=== PATIENT | female | born 1970 ===

== ENCOUNTER 2016-10-01 09:20 | Emergency (ER) | payer OTHER ==
[2016-10-01 09:28] VITALS: BP 137/94; PULSE 96; RESP 18; TEMP 98.4; O2SAT 100
--- NOTE | 2016-10-01 09:50 | C.PDOC ---
History Of Present Illness 46 Y/O FEMALE C/O NEW ONSET LEFT UPPER MOLAR SINCE JUST PRIOR TO ARRIVAL. PATIENT REPORTS SHE WAS CHEWING ON BREAD AND FELT SOMETHING DISLODGE FROM THE TOOTH, WITH ACUTE SUDDEN ONSET OF PAIN. TOOK NSAIDS TODAY PRIOR TO ARRIVAL WITH LIMITED IMPROVEMENT. DENIES FEVER, CHILLS, OR OTHER COMPLAINTS. PT STATES SHE IS ACTIVELY LOOKING TO SEE DENTIST TODAY. Chief Complaint (Nursing): Dental Pain History Per: Patient History/Exam Limitations: no limitations Onset/Duration Of Symptoms: Days Current Symptoms Are (Timing): Still Present Quality: Positive for: "Pain" Recent travel outside of the [place]: No Past Medical History Reviewed: Historical Data, Nursing Documentation, Vital Signs Vital Signs: Last Vital Signs Temp 98.4 F 10/01/16 09:27 Pulse 96 H 10/01/16 09:27 Resp 18 10/01/16 09:27 BP 137/94 H 10/01/16 09:27 Pulse Ox 100 10/01/16 10:26 - Medical History PMH: Hypercholesterolemia (Controlled with diet.), Obstructive Bowel (x4) Family History: States: Unknown Family Hx - Social History Hx Alcohol Use: Yes Hx Substance Use: No - Immunization History Hx Tetanus Toxoid Vaccination: Yes Hx Influenza Vaccination: No Hx Pneumococcal Vaccination: Yes Review Of Systems Except As Marked, All Systems Reviewed And Found Negative. Constitutional: Negative for: Fever, Chills ENT: Positive for: Mouth Pain (LEFT UPPER MOLAR PAIN ). Negative for: Mouth Swelling, Throat Pain, Throat Swelling Respiratory: Negative for: Cough Physical Exam - Physical Exam Appears: Non-toxic, No Acute Distress Skin: Normal Color, Warm, Dry Head: Atraumatic, Normacephalic Oral Mucosa: Moist Teeth: Other (FILLING MISSING TO LEFT UPPER MOLAR, BASE OF TOOTH EXPOSED, NO FRACTURE, GUM SWELLING, OR ABSCESS. ) Gingiva: Normal Appearing, No Swelling, No Abscess Throat: Normal, No Erythema, No Exudate Neurological/Psych: Oriented x3, Normal Speech, Normal Cognition ED Course And Treatment O2 Sat by Pulse Oximetry: 100 (RA) Pulse Ox Interpretation: Normal Progress - Re-Evaluation Re-evaluation Note: 10/01/16 09:50 nj rx review 09/03/2016 TRAMADOL HCL 50 MG TABLET 30.0 - Data Reviewed Data Reviewed: Other Disposition Counseled Patient/Family Regarding: Diagnosis, Need For Followup, Rx Given - Disposition Referrals: YOUR,DENTIST [Other] Disposition: HOME/ ROUTINE Disposition Time: 10:25 Condition: IMPROVED Additional Instructions: APPLY VISCOUS LIDOCAINE TO AFFECTED AREA DIRECTED NEEDED FOR PAIN. SEE YOUR DENTIST NELSON. Prescriptions: Penicillin VK [Pen-Vee K] 2 tab PO BID #28 tab oxyCODONE/Acetaminophen [Percocet 5/325 mg Tab] 1 tab PO QID PRN #14 tab PRN Reason: Pain Instructions: Toothache (ED) Forms: Work Excuse - Clinical Impression Clinical Impression: Loss of filling from access hole of tooth, Tooth pain - Scribe Statement The provider has reviewed the documentation as recorded by the [place] FONSECA Provider Attestation: All medical record entries made by the [place] were at my direction and personally dictated by me. I have reviewed the chart and agree that the record accurately reflects my personal performance of the history, physical exam, medical decision making, and the department course for this patient. I have also personally directed, reviewed, and agree with the discharge instructions and disposition.
[2016-10-01] MEDS ORDERED: Oxycodone/Acetaminophen 5/325 mg Tab ONE (10:08)
== END 2016-10-01 10:44 | disposition home or self-care (01) ==
LOC: C.ER 09:20
DX: K08.89 Other specified disorders of teeth and supporting structures (principal)

== ENCOUNTER 2016-10-23 10:28 | Emergency (ER) | payer OTHER ==
[2016-10-23] MEDS ORDERED: Bupivacaine HCl 0.25% PF (10 ml) Inj INFIL STA (11:52)
[2016-10-23] MEDS ORDERED: Morphine 4 MG/ML VIAL ONE ×2 (13:03→17:21)
[2016-10-23 13:10] LABS: BASO # 0.1 K/uL (0.0-0.2); BASO % 0.9 % (0.0-2.0); EOS # 0.2 K/uL (0.0-0.7); EOS % 1.7 % (0.0-4.0); HEMATOCRIT 34.7 % (34.0-47.0); LYMPH # 3.7 K/uL (1.0-4.3); LYMPH % 31.8 % (20.0-40.0); MEAN CELL VOLUME 96.7 fL (81.0-99.0); MEAN CORPUSCULAR HEMOGLOBIN 32.4 pg (27.0-31.0); MEAN CORPUSCULAR HGB CONC 33.5 g/dL (33.0-37.0); MEAN PLATELET VOLUME 7.8 fL (7.2-11.7); MONO # 0.8 K/uL (0.0-0.8); MONO % 6.6 % (0.0-10.0); RED CELL DISTRIBUTION WIDTH 13.5 % (11.5-14.5); WHITE BLOOD COUNT 11.7 K/uL (4.8-10.8)
[2016-10-23] MEDS ORDERED: Sodium Chloride 0.9% 1,000 ML IV ONE (13:16)
[2016-10-23 13:19] LABS: CHLORIDE 104 mmol/L (98-107); POTASSIUM 3.9 mmol/L (3.6-5.2); SODIUM 139 mmol/L (132-148)
[2016-10-23 13:21] LABS: ALB/GLOB RATIO 1.3 (1.0-2.1); AST/SGOT 26 U/L (14-36); BILIRUBIN,TOTAL 0.5 mg/dL (0.2-1.3); CARBON DIOXIDE 28 mmol/L (22-30); GFR AFRICAN-AMERICAN > 60; TOTAL PROTEIN 7.2 g/dL (6.3-8.3)
[2016-10-23 13:22] LABS: ALKALINE PHOSPHATASE 74 U/L (38-126); ALT/SGPT 24 U/L (9-52); BLOOD UREA NITROGEN 12 mg/dL (7-17); CALCIUM 8.8 mg/dl (8.6-10.4); GLUCOSE,RANDOM 84 mg/dL (65-105)
[2016-10-23] MEDS ORDERED: Iohexol 240 (50 ml) ONE (13:45)
--- NOTE | 2016-10-23 13:53 | C.PDOC ---
History Of Present Illness A 46 year old female presents to the emergency room with complaints of progressively worsening rectal pain for 2 days. Patient reports that she had a friend take a look and was told to come to the ER. Patient notes that she has not experienced a pain like this before. Patient has not taken any medications for it. Patient denies any fever, chills, chest pain, shortness of breath, headaches, dizziness, nausea, vomiting, diarrhea, hematochezia, or melena. Time Seen by Provider: 10/23/16 11:39 Chief Complaint (Nursing): Abnormal Skin Integrity History Per: Patient History/Exam Limitations: no limitations Onset/Duration Of Symptoms: Days (2) Current Symptoms Are (Timing): Worse Quality Of Symptoms: Painful, Swollen. denies: Itching, Draining Severity: Moderate Pain Scale Rating Of: 0 Recent travel outside of the [place]: No Past Medical History Reviewed: Historical Data, Nursing Documentation, Vital Signs Vital Signs: Last Vital Signs Temp 97.9 F 10/23/16 17:04 Pulse 74 10/23/16 18:05 Resp 18 10/23/16 18:05 BP 128/78 10/23/16 18:05 Pulse Ox 98 10/23/16 18:42 - Medical History PMH: Hypercholesterolemia (Controlled with diet.), Obstructive Bowel (x4) Family History: States: Unknown Family Hx - Social History Hx Alcohol Use: Yes Hx Substance Use: No - Immunization History Hx Tetanus Toxoid Vaccination: Yes Review Of Systems Constitutional: Negative for: Fever, Chills Cardiovascular: Negative for: Chest Pain Respiratory: Negative for: Shortness of Breath Gastrointestinal: Positive for: Rectal Pain. Negative for: Nausea, Vomiting, Abdominal Pain, Diarrhea, Melena, Hematochezia Neurological: Negative for: Headache, Dizziness Physical Exam - Physical Exam Appears: Well, In Acute Distress (due to pain ) Skin: Normal Color, Warm, Dry, No Rash Head: Atraumatic, Normacephalic Cardiovascular: Rhythm Regular Respiratory: Normal Breath Sounds, No Rales, No Rhonchi, No Wheezing Gastrointestinal/Abdominal: Soft, No Tenderness Rectal: Other (1.5 cm firm round lesion at 6 o'clock position. No induration. No surrounding swelling.) Neurological/Psych: Oriented x3, Normal Speech, Normal Cognition ED Course And Treatment - Laboratory Results Result Diagrams: 10/23/16 13:07 10/23/16 13:07 O2 Sat by Pulse Oximetry: 98 - CT Scan/US Abdomen & Pelvis CT Other Rad Studies (CT/US): Read By Radiologist, Radiology Report Reviewed CT/US Interpretation: PROCEDURE: CT Abdomen and Pelvis with oral and IV contrast. HISTORY: rectal mass r/o abscess. COMPARISON: None available. TECHNIQUE: Contiguous axial images of the abdomen and pelvis. Oral and IV contrast was administered. Coronal and Sagittal reformats generated and reviewed. Contrast dose: 100 mL Visipaque. Radiation dose: Total exam DLP = 648.65 mGy-cm. This CT exam was performed using one or more of the following dose reduction techniques: Automated exposure control, adjustment of the mA and/ or kV according to patient size, and/or use of iterative reconstruction technique. FINDINGS: LOWER THORAX: No visible consolidation, pleural effusion , or pneumothorax. LIVER: Hypoattenuation of the liver compatible with hepatic steatosis. GALLBLADDER AND BILE DUCTS: Unremarkable. PANCREAS: Unremarkable. SPLEEN: Unremarkable. ADRENALS: Unremarkable. KIDNEYS AND URETERS: The kidneys enhance symmetrically. No hydronephrosis or obstructing renal calculus. BLADDER: The urinary bladder appears unremarkable. REPRODUCTIVE: Uterus is absent, presumably due to hysterectomy. APPENDIX: The appendix is not identified. No secondary signs of acute appendicitis. BOWEL: The stomach is nondistended. The bowel loops appear within normal limits of caliber without evidence of intestinal obstruction. Moderate constipation. PERITONEUM: No significant free fluid. No definite free air. LYMPH NODES: No bulky lymphadenopathy identified. VASCULATURE: No aortic aneurysm. BONES: No acute osseous abnormality is detected. OTHER FINDINGS: Probable injection granulomas, bilateral buttocks. IMPRESSION: No focal fluid collection or rectal abscess identified. Patient with history of rectal mass. Recommend correlation with physical exam and direct visualization with colonoscopy/sigmoidoscopy if indicated in order to exclude possibility of underlying neoplasm. Moderate constipation. Hepatic steatosis. Progress Note: Patient given Morphine for pain, verbal consent given after explaination of procedure ie asperation / I&D Medical Decision Making Medical Decision Making: Attempted aspiration but no fluids or blood collected. Small incision made with no pus expressed, but slight bleeding no clots Post procedure CT ordered to R/o other pathology Results of CT and plan discussed with pt dc home pain meds sitz bath PCP f/u return new or worsening symptoms. Disposition - Disposition Referrals: Jas Garcia MD [Staff Provider] - Disposition: HOME/ ROUTINE Disposition Time: 17:52 Condition: GOOD Additional Instructions: Follow up with PMD Prescriptions: Docusate [Colace] 1 cap PO TID PRN #90 cap PRN Reason: .constipation Hydrocortisone [Anusol-HC] 1 sup NJ BID #20 sup Naproxen [Naprosyn] 1 tab PO BID PRN #25 tab PRN Reason: Pain oxyCODONE/Acetaminophen [Percocet 5/325 mg Tab] 1 tab PO Q4H PRN #12 tab PRN Reason: .severe pain [place] [Tucks] 1 pad NJ QID PRN #40 pad PRN Reason: .post BM Instructions: Hemorrhoids (ED) - Clinical Impression Clinical Impression: Unspecified thrombosed hemorrhoids - Scribe Statement The provider has reviewed the documentation as recorded by the Scribjose Lua All medical record entries made by the Laylaibe were at my direction and personally dictated by me. I have reviewed the chart and agree that the record accurately reflects my personal performance of the history, physical exam, medical decision making, and the department course for this patient. I have also personally directed, reviewed, and agree with the discharge instructions and disposition.
[2016-10-23] MEDS ORDERED: Aluminum Hydroxide/Magnesium Hydroxide Susp (30 mL) PO STA (15:25)
[2016-10-23] MEDS ORDERED: Iodixanol 320 MG/ML 100 ML BOTTLE IV ONE (15:33)
[2016-10-23] MEDS ORDERED: Aluminum Hydroxide/Magnesium Hydroxide Susp (30 mL) ONE (15:40)
[2016-10-23 17:05] VITALS: RESP 18; TEMP 97.9
--- NOTE | 2016-10-23 17:17 | CT ---
PROCEDURE: CT Abdomen and Pelvis with oral and IV contrast. HISTORY: rectal mass r/o abscess COMPARISON: None available TECHNIQUE: Contiguous axial images of the abdomen and pelvis. Oral and IV contrast was administered. Coronal and Sagittal reformats generated and reviewed. Contrast dose: 100 mL Visipaque Radiation dose: Total exam DLP = 648.65 mGy-cm. This CT exam was performed using one or more of the following dose reduction techniques: Automated exposure control, adjustment of the mA and/or kV according to patient size, and/or use of iterative reconstruction technique. FINDINGS: LOWER THORAX: No visible consolidation, pleural effusion, or pneumothorax. LIVER: Hypoattenuation of the liver compatible with hepatic steatosis. GALLBLADDER AND BILE DUCTS: Unremarkable. PANCREAS: Unremarkable. SPLEEN: Unremarkable. ADRENALS: Unremarkable. KIDNEYS AND URETERS: The kidneys enhance symmetrically. No hydronephrosis or obstructing renal calculus. BLADDER: The urinary bladder appears unremarkable. REPRODUCTIVE: Uterus is absent, presumably due to hysterectomy. APPENDIX: The appendix is not identified. No secondary signs of acute appendicitis. BOWEL: The stomach is nondistended. The bowel loops appear within normal limits of caliber without evidence of intestinal obstruction. Moderate constipation. PERITONEUM: No significant free fluid. No definite free air. LYMPH NODES: No bulky lymphadenopathy identified. VASCULATURE: No aortic aneurysm. BONES: No acute osseous abnormality is detected. OTHER FINDINGS: Probable injection granulomas, bilateral buttocks. IMPRESSION: No focal fluid collection or rectal abscess identified. Patient with history of rectal mass. Recommend correlation with physical exam and direct visualization with colonoscopy/sigmoidoscopy if indicated in order to exclude possibility of underlying neoplasm. Moderate constipation. Hepatic steatosis.
[2016-10-23 17:55] VITALS: O2SAT 98
[2016-10-23 18:06] VITALS: BP 128/78; PULSE 74
== END 2016-10-23 18:07 | disposition home or self-care (01) ==
LOC: C.ER 10:28
DX: K64.5 Perianal venous thrombosis (principal)
CPT/HCPCS: 74177; 80053; 85025; 96361; 96374; 96375; 96376; 99284; J2270; J7040; Q9967

== ENCOUNTER 2017-08-19 14:47 | Emergency (ER) | payer MEDICAID, OTHER ==
[2017-08-19 15:28] VITALS: BP 147/87; PULSE 87; RESP 20; TEMP 98.2; O2SAT 98
[2017-08-19] MEDS ORDERED: Bacitracin 500 Units/gm Oint Foilpak UD TOP ONE (16:11)
[2017-08-19] MEDS ORDERED: Bacitracin 500 Units/gm Oint Foilpak UD ONE ×2 (16:22→17:42)
[2017-08-19] MEDS ORDERED: Acetaminophen-Codeine 300/30 mg Tab PO STA (17:04)
[2017-08-19] MEDS ORDERED: Acetaminophen-Codeine 300/30 mg Tab PO ONE (17:20)
--- NOTE | 2017-08-19 17:34 | C.PDOC ---
History Of Present Illness 47 year old female presents to the ED for evaluation of left knee pain which began earlier today. Patient states she was walking when she tripped over uneven pavement, fell, and landed onto her left knee. Patient also complains of left foot, lower back, and pelvis pain. Patient denies head injury, LOC, urinary /bowel incontinence, and extremity numbness/weakness. Time Seen by Provider: 08/19/17 16:01 Chief Complaint (Nursing): Lower Extremity Problem/Injury History Per: Patient History/Exam Limitations: no limitations Onset/Duration Of Symptoms: Hrs Current Symptoms Are (Timing): Still Present Additional History Per: Patient - Knee Description Of Injury: Fell Past Medical History Reviewed: Historical Data, Nursing Documentation, Vital Signs Vital Signs: Last Vital Signs Temp 98.2 F 08/19/17 15:22 Pulse 87 08/19/17 15:22 Resp 20 08/19/17 15:22 BP 147/87 08/19/17 15:22 Pulse Ox 98 08/19/17 17:34 - Medical History PMH: Asthma, Hypercholesterolemia, Obstructive Bowel (x4) Surgical History: No Surg Hx Family History: States: Unknown Family Hx - Social History Hx Alcohol Use: No Hx Substance Use: No - Immunization History Hx Tetanus Toxoid Vaccination: No Hx Influenza Vaccination: Yes Hx Pneumococcal Vaccination: No Review Of Systems Genitourinary: Positive for: Pelvic Pain Musculoskeletal: Positive for: Back Pain, Foot Pain (left ), Other (left knee pain ) Neurological: Negative for: Weakness, Numbness, Other (head injury, LOC ) Physical Exam - Physical Exam Appears: Non-toxic, No Acute Distress Skin: Normal Color, Warm, Dry, Other (abrasion noted to left knee ) Head: Atraumatic, Normacephalic Eye(s): bilateral: Normal Inspection Oral Mucosa: Moist Neck: Supple Chest: Symmetrical, No Deformity, No Tenderness Cardiovascular: Rhythm Regular, No Murmur Respiratory: Normal Breath Sounds, No Rales, No Rhonchi, No Wheezing Gastrointestinal/Abdominal: Soft, No Tenderness, No Guarding, No Rebound Back: Paraspinal Tenderness (lumbar ) Extremity: Normal ROM, Tenderness (to dorsal aspect of left foot ), Capillary Refill (less than 2 seconds ), Swelling (to dorsal aspect of left foot ), Other (tenderness to left inner pelvic region ) Neurological/Psych: Oriented x3, Normal Speech, Normal Cognition, Normal Sensation ED Course And Treatment O2 Sat by Pulse Oximetry: 98 (on RA) Pulse Ox Interpretation: Normal Medical Decision Making Medical Decision Making: Progress: Bloodwork, left knee XR, left foot XR, LS Spine XR, Pelvic XR ordered and reviewed. Motrin PO and Tylenol/Codeine PO administered. Bacitracin TOP applied. Disposition Counseled Patient/Family Regarding: Studies Performed, Diagnosis, Need For Followup, Rx Given - Disposition Disposition: HOME/ ROUTINE Disposition Time: 17:32 Condition: STABLE Additional Instructions: follow up with your doctor in 2 days call to make an appointment take medications as prescribed return to ER if symptoms worsens or progress preliminary reading demonstrates no fracture xrays will be officially read by radiologist apply ice to injured area Prescriptions: Acetaminophen/Codeine [Tylenol/Codeine 300 MG/30 MG] 1 tab PO Q6H PRN #12 tab PRN Reason: Pain, Severe (8-10) Cyclobenzaprine [Cyclobenzaprine HCl] 10 mg PO TID PRN #12 tab PRN Reason: Muscle Spasm Naproxen [Naprosyn] 500 mg PO BID PRN #16 tab PRN Reason: Pain, Moderate (4-7) Instructions: Contusion (DC) Forms: General Discharge Instructions, [facility] (Korean), Work Excuse - Clinical Impression Clinical Impression: Contusion - Scribe Statement The provider has reviewed the documentation as recorded by the Scribe (Hali Liz) Provider Attestation: All medical record entries made by the Scribe were at my direction and personally dictated by me. I have reviewed the chart and agree that the record accurately reflects my personal performance of the history, physical exam, medical decision making, and the department course for this patient. I have also personally directed, reviewed, and agree with the discharge instructions and disposition.
--- NOTE | 2017-08-20 08:48 | RAD ---
PROCEDURE: Radiographs of the pelvis. HISTORY: fall COMPARISON: None. FINDINGS: BONES: Pelvic Bones: Possible benign bone island left iliac bone Hips: Grossly unremarkable. JOINTS: Sacroiliac Joints: Bilateral iliac sided trace subchondral sclerosis. Pubic Symphysis: Unremarkable. OTHER FINDINGS: Bilateral hemipelvic phleboliths. IMPRESSION: No fracture or dislocation.
--- NOTE | 2017-08-20 08:51 | RAD ---
PROCEDURE: Left Knee Radiographs. HISTORY: Pain. COMPARISON: None. FINDINGS: BONES: Normal. No fracture. JOINTS: Normal. No osteoarthritis. JOINT EFFUSION: None. OTHER FINDINGS: None. IMPRESSION: Normal radiographs of the left knee.
--- NOTE | 2017-08-20 08:51 | RAD ---
PROCEDURE: Radiographs of the Lumbar Spine. HISTORY: fall COMPARISON: No prior. FINDINGS: BONES: Normal alignment. No listhesis. No fracture. DISC SPACES: Unremarkable. OTHER FINDINGS: Lumbosacral level transitional elements suggested -developmental variant Bilateral iliac sided sacroiliac subchondral trace sclerosis IMPRESSION: No fracture. Developmental variant- transitional elements--lumbosacral level Bilateral sacroiliac minimal sclerotic arthrosis
--- NOTE | 2017-08-20 08:59 | RAD ---
PROCEDURE: Left Foot Radiographs. HISTORY: fall COMPARISON: None. FINDINGS: BONES: . No fracture. JOINTS: Trace dorsal tarsal metatarsal osseous hypertrophy. Trace inferior and posterior calcaneal spurring. Minimal 1st metatarsal-phalangeal joint arthrosis changes SOFT TISSUES: Normal. OTHER FINDINGS: Hammertoe like orientations. 2 mm size for ossifications center and bordering navicular bone -tiny tibial externum IMPRESSION: Early arthrosis. No fracture
== END 2017-08-19 17:54 | disposition home or self-care (01) ==
LOC: C.ER 14:47
DX: T14.8XXA Other injury of unspecified body region, initial encounter (principal); W01.0XXA Fall on same level from slipping, tripping and stumbling without subsequent striking against object, initial encounter; Y93.01 Activity, walking, marching and hiking; Y92.480 Sidewalk as the place of occurrence of the external cause

== ENCOUNTER 2017-10-08 03:36 | Emergency (ER) | payer MEDICAID ==
[2017-10-08] MEDS ORDERED: Sodium Chloride 0.9% 500 ML IV ONE ×2 (04:21→04:28)
--- NOTE | 2017-10-08 04:23 | C.PDOC ---
History Of Present Illness 47 y/o female with PMHx of multiple prior bowel obstructions, now presents with complaints of in right lower abdominal pain beginning this afternoon. She then developed chest pain and vomiting this evening. Patient became very anxious and felt as if she could not breathe so she called EMS. No fever or chills. Time Seen by Provider: 10/08/17 04:15 Chief Complaint (Nursing): High Blood Pressure History Per: Patient History/Exam Limitations: no limitations Onset/Duration Of Symptoms: Hrs Current Symptoms Are (Timing): Still Present Associated Symptoms: Chest Pain Past Medical History Reviewed: Historical Data, Nursing Documentation, Vital Signs Vital Signs: Last Vital Signs Temp 98.1 F 10/08/17 06:48 Pulse 70 10/08/17 06:48 Resp 16 10/08/17 06:48 BP 140/73 10/08/17 06:48 Pulse Ox 95 10/09/17 01:58 - Medical History PMH: Asthma, Hypercholesterolemia, Obstructive Bowel (x4) Surgical History: Appendectomy Other Surgeries: Multiple bowel resections, Hysterectomy Family History: States: Unknown Family Hx - Social History Hx Alcohol Use: No Hx Substance Use: No - Immunization History Hx Tetanus Toxoid Vaccination: No Hx Influenza Vaccination: Yes Hx Pneumococcal Vaccination: No Review Of Systems Except As Marked, All Systems Reviewed And Found Negative. Constitutional: Negative for: Fever, Chills Cardiovascular: Positive for: Chest Pain Respiratory: Positive for: Shortness of Breath Gastrointestinal: Positive for: Vomiting, Abdominal Pain. Negative for: Diarrhea Psych: Positive for: Anxiety Physical Exam - Physical Exam Appears: In Acute Distress (mild distress secondary to pain and anxiety), Other (Appears anxious, screaming at business continuity manager shortly after arrival) Skin: Normal Color (pink), Warm, Dry Head: Atraumatic, Normacephalic Eye(s): bilateral: Normal Inspection, PERRL, EOMI Nose: Normal Oral Mucosa: Moist Neck: Normal ROM, Supple Chest: Symmetrical Cardiovascular: Rhythm Regular, No Murmur, Other (S1 and S2 wnl) Respiratory: No Rales, No Rhonchi, No Wheezing, Other (Lungs are CTA bilaterally ) Gastrointestinal/Abdominal: Soft, Tenderness (Mild right lower quadrant tenderness), No Guarding, No Rebound Back: CVA Tenderness (Right), No Vertebral Tenderness Extremity: Bilateral: Atraumatic, Normal Color And Temperature (with no edema, cyanosis, or clubbing) Pulses: Left Dorsalis Pedis: Normal, Right Dorsalis Pedis: Normal Neurological/Psych: Oriented x3 ED Course And Treatment - Laboratory Results Result Diagrams: 10/08/17 04:33 10/08/17 04:33 ECG: Interpreted By Me, Viewed By Me ECG Rhythm: Sinus Rhythm (at 86 bpm, intervals all wnl, no ectopy, QT is slightly prolonged) O2 Sat by Pulse Oximetry: 95 (RA) Pulse Ox Interpretation: Normal - CT Scan/US CT Abdomen/Pelvis Other Rad Studies (CT/US): Read By Radiologist, Radiology Report Reviewed CT/US Interpretation: FINDINGS: Lung bases: There is bibasilar atelectasis. Mediastinum: Possible small hiatal hernia. ABDOMEN: Liver: The dome of the liver is partially excluded from the examination. Gallbladder and bile ducts: Partially distended gallbladder. Pancreas: Unremarkable. No ductal dilation. Spleen: Unremarkable. No splenomegaly. Adrenals: Unremarkable. No mass. Kidneys and ureters: Unremarkable. No obstructing stones. No hydronephrosis. Stomach and bowel: Large amount of stool in the colon. Correlation with patient' s clinical history of. constipation is recommended. No mucosal thickening. Appendix: The appendix not identified with complete certainty due to unopacified cecum and distal. small bowel. There is lack of intra-abdominal fat. If clinical concern remains, a repeat study with thin. sections after an appropriate time interval may allow oral contrast to opacify the cecum. PELVIS : Bladder: There is nonspecific bladder wall thickening. This may be related to incomplete distention. Reproductive: Hysterectomy. ABDOMEN and PELVIS: Intraperitoneal space: Unremarkable. No free air. No significant fluid collection. Bones/joints: No acute fracture. No dislocation. Soft tissues: Unremarkable. Vasculature: Pelvic phleboliths. No abdominal aortic aneurysm. Lymph nodes: Unremarkable. No enlarged lymph nodes. IMPRESSION: No acute abnormality on this noncontrast CT examination of the abdomen and pelvis . Thank you for allowing us to participate in the care of your patient. Dictated and Authenticated by: John Dover MD. 10/08/2017 6:07 AM Eastern Time ( [place] & [place]) Medical Decision Making Medical Decision Making: Impression: Abdominal pain, consider UTI vs renal colic with superimposed anxiety Plan: * Routine labs * CT abd/pelvis * IVF hydration * Toradol 30 mg IV * Zofran [address] findings discussed with patient. Disposition - Disposition Referrals: [facility] [Outside] Disposition: HOME/ ROUTINE Disposition Time: 01:59 Condition: GOOD Prescriptions: Acetaminophen/Hydrocodone Bi [Vicodin 300 mg-5 mg] 1 tab PO QID PRN #10 tab PRN Reason: Other Instructions: Acute Abdomen (Belly Pain) Forms: [employer] (Korean) Print Language: PORTUGUESE - Clinical Impression Clinical Impression: Abdominal pain - Scribe Statement The provider has reviewed the documentation as recorded by the Scribe (Purnima Seymour) Provider Attestation: All medical record entries made by the Scribe were at my direction and personally dictated by me. I have reviewed the chart and agree that the record accurately reflects my personal performance of the history, physical exam, medical decision making, and the department course for this patient. I have also personally directed, reviewed, and agree with the discharge instructions and disposition.
[2017-10-08 04:39] LABS: SQUAMOUS EPITHIAL < 1 /hpf (0-5); URINE BILIRUBIN NEGATIVE (NEGATIVE); URINE BLOOD NEGATIVE (NEGATIVE); URINE CLARITY Clear (Clear); URINE COLOR Yellow (YELLOW); URINE GLUCOSE (UA) NORMAL (Normal); URINE LEUKOCYTE ESTERASE NEG Leu/uL (Negative); URINE PROTEIN NEGATIVE (NEGATIVE); URINE UROBILINOGEN NORMAL mg/dL (0.2-1.0)
[2017-10-08 04:49] LABS: BASO # 0.1 K/uL (0.0-0.2); BASO % 1.2 % (0.0-2.0); EOS # 0.1 K/uL (0.0-0.7); EOS % 0.9 % (0.0-4.0); LYMPH # 3.7 K/uL (1.0-4.3); LYMPH % 30.9 % (20.0-40.0); MEAN CELL VOLUME 93.4 fL (81.0-99.0); MEAN CORPUSCULAR HEMOGLOBIN 31.8 pg (27.0-31.0); MEAN CORPUSCULAR HGB CONC 34.1 g/dL (33.0-37.0); MONO # 0.8 K/uL (0.0-0.8); MONO % 6.5 % (0.0-10.0); NEUT # 7.2 K/uL (1.8-7.0); NEUT % 60.5 % (50.0-75.0); RBC 4.09 Mil/uL (3.80-5.20); RED CELL DISTRIBUTION WIDTH 13.5 % (11.5-14.5); WHITE BLOOD COUNT 11.9 K/uL (4.8-10.8)
[2017-10-08 04:51] LABS: ALB/GLOB RATIO 1.2 (1.0-2.1); ALBUMIN 4.9 g/dL (3.5-5.0); ALT/SGPT 26 U/L (9-52); AST/SGOT 34 U/L (14-36); BLOOD UREA NITROGEN 13 mg/dL (7-17); CALCIUM 9.6 mg/dl (8.6-10.4); GFR AFRICAN-AMERICAN > 60; GFR NON-AFRICAN AMERICAN > 60; LIPASE 20 U/L (23-300)
[2017-10-08] MEDS ORDERED: Potassium Chloride 20 mEq/15 ml LIQ UD PO STA (05:06)
[2017-10-08] MEDS ORDERED: Potassium Chloride 20 mEq/15 ml LIQ UD ONE (05:23)
[2017-10-08] MEDS ORDERED: HYDROmorphone 1 mg/ml ISec IVP STA (05:30)
--- NOTE | 2017-10-08 06:08 | CT ---
EXAM: CT Abdomen and Pelvis Without Intravenous Contrast CLINICAL HISTORY: 47 years old, female; Pain; Abdominal pain; Prior surgery; Surgery type: Hysterectomy; Patient HX: 5-17 images sent; Additional info: Abd pain TECHNIQUE: Axial computed tomography images of the abdomen and pelvis without intravenous contrast. All CT scans at this facility use one or more dose reduction techniques, viz.: automated exposure control; ma/kV adjustment per patient size (including targeted exams where dose is matched to indication; i.e. head); or iterative reconstruction technique. 611 images are submitted.Limitations: Absence of IV contrast decreases sensitivity for detecting vascular and visceral injury and abnormality. Coronal and sagittal reformatted images were created and reviewed. COMPARISON: CT - ABD PELVIS PO IV CONTRAST 2016-10-23 15:38 FINDINGS: Lung bases: There is bibasilar atelectasis. Mediastinum: Possible small hiatal hernia. ABDOMEN: Liver: The dome of the liver is partially excluded from the examination. Gallbladder and bile ducts: Partially distended gallbladder. Pancreas: Unremarkable. No ductal dilation. Spleen: Unremarkable. No splenomegaly. Adrenals: Unremarkable. No mass. Kidneys and ureters: Unremarkable. No obstructing stones. No hydronephrosis. Stomach and bowel: Large amount of stool in the colon. Correlation with patient's clinical history of constipation is recommended. No mucosal thickening. Appendix: The appendix not identified with complete certainty due to unopacified cecum and distal small bowel. There is lack of intra-abdominal fat. If clinical concern remains, a repeat study with thin sections after an appropriate time interval may allow oral contrast to opacify the cecum. PELVIS: Bladder: There is nonspecific bladder wall thickening. This may be related to incomplete distention. Reproductive: Hysterectomy. ABDOMEN and PELVIS: Intraperitoneal space: Unremarkable. No free air. No significant fluid collection. Bones/joints: No acute fracture. No dislocation. Soft tissues: Unremarkable. Vasculature: Pelvic phleboliths. No abdominal aortic aneurysm. Lymph nodes: Unremarkable. No enlarged lymph nodes. IMPRESSION: No acute abnormality on this noncontrast CT examination of the abdomen and pelvis .
[2017-10-08 06:32] VITALS: O2SAT 95
[2017-10-08 06:52] VITALS: BP 140/73; PULSE 70; RESP 16
[2017-10-08 06:59] VITALS: TEMP 98.1
--- NOTE | 2017-10-09 13:28 | CARD ---
APPROVED REPORT EKG Measurement Heart [id number] <Conclusion> Normal sinus rhythm Possible Left atrial enlargement Prolonged QT Abnormal ECG
== END 2017-10-08 07:15 | disposition home or self-care (01) ==
LOC: C.ER 03:36
DX: R10.9 Unspecified abdominal pain (principal); E78.00 Pure hypercholesterolemia, unspecified
CPT/HCPCS: 74176; 80053; 81001; 83690; 84484; 85025; 93005; 96374; 96375; 99285; J1170; J1885; J2405; J7040

== ENCOUNTER 2017-12-08 21:05 | Emergency (ER) | payer MEDICAID ==
[2017-12-08 21:29] LABS: HCG,QUALITATIVE URINE NEGATIVE (NEGATIVE)
[2017-12-08 21:40] LABS: SQUAMOUS EPITHIAL 1 /hpf (0-5); URINE AMORPHOUS SEDIMENT RARE /ul (<OCC); URINE BACTERIA FEW (<OCC); URINE BILIRUBIN NEGATIVE (NEGATIVE); URINE BLOOD NEGATIVE (NEGATIVE); URINE CLARITY Hazy (Clear); URINE COLOR Yellow (YELLOW); URINE GLUCOSE (UA) NORMAL (Normal); URINE LEUKOCYTE ESTERASE 2+ Leu/uL (Negative); URINE PROTEIN NEGATIVE (NEGATIVE); URINE UROBILINOGEN NORMAL mg/dL (0.2-1.0)
--- NOTE | 2017-12-08 22:10 | C.PDOC ---
Time Seen by Provider: 12/08/17 21:21 Chief Complaint (Nursing): Abdominal Pain History Per: Patient Onset/Duration Of Symptoms: Hrs Current Symptoms Are (Timing): Still Present Severity: Moderate Location Of Pain/Discomfort: RLQ, Suprapubic Quality Of Discomfort: "Pain" Associated Symptoms: Urinary Symptoms Alleviating Factors: None Additional History Per: Prior Records Abnormal Vaginal Bleeding: No Past Medical History Reviewed: Historical Data, Nursing Documentation, Vital Signs Vital Signs: Last Vital Signs Temp 98.5 F 12/08/17 21:09 Pulse 89 12/08/17 21:09 Resp 19 12/08/17 21:09 BP 145/89 12/08/17 21:09 Pulse Ox 98 12/08/17 21:09 - Medical History PMH: Asthma, Back Problems, Depression, Hypercholesterolemia, Obstructive Bowel (x4) Surgical History: Appendectomy Other Surgeries: Total Hysterectomy Family History: States: Unknown Family Hx - Social History Hx Alcohol Use: No Hx Substance Use: No - Immunization History Hx Tetanus Toxoid Vaccination: No Hx Influenza Vaccination: Yes Hx Pneumococcal Vaccination: No Review Of Systems Except As Marked, All Systems Reviewed And Found Negative. Constitutional: Negative for: Fever, Weakness Cardiovascular: Negative for: Chest Pain Respiratory: Negative for: Shortness of Breath Gastrointestinal: Negative for: Vomiting, Diarrhea, Constipation, Melena, Hematochezia, Hematemesis Genitourinary: Positive for: Frequency. Negative for: Incontinence, Vaginal Discharge, Vaginal Bleeding Musculoskeletal: Positive for: Back Pain (chronic lower). Negative for: Neck Pain Skin: Negative for: Rash Neurological: Negative for: Weakness Physical Exam - Physical Exam Appears: Non-toxic, No Acute Distress Skin: Normal Color, Warm, Dry, No Rash Head: Atraumatic, Normacephalic Eye(s): bilateral: Normal Inspection, PERRL, EOMI Neck: Normal ROM, Supple Cardiovascular: Rhythm Regular Respiratory: Normal Breath Sounds, No Accessory Muscle Use Gastrointestinal/Abdominal: Soft, Tenderness (lower), No Distention, No Guarding , No Rebound Back: No CVA Tenderness, Paraspinal Tenderness (left lower) Extremity: Normal ROM Neurological/Psych: Oriented x3, Normal Motor, Normal Sensation ED Course And Treatment - Laboratory Results Interpretation Of Abnormal: UTI, urine C&S sent. O2 Sat by Pulse Oximetry: 98 Pulse Ox Interpretation: Normal Reassessment Condition: Improved Disposition Counseled Patient/Family Regarding: Studies Performed, Diagnosis, Need For Followup, Rx Given - Disposition Disposition: HOME/ ROUTINE Disposition Time: 22:11 Condition: IMPROVED Additional Instructions: Follow up with your doctor this week. Return to the ER if you develop fever, vomiting, worsening of symptoms or if you have any other concerns. Prescriptions: Ciprofloxacin [Cipro] 1 tab PO BID #10 tab Instructions: Urinary Tract Infection, Adult (DC) Forms: [email or web address] (Moldovan) - Clinical Impression Clinical Impression: UTI (urinary tract infection), Chronic low back pain
[2017-12-08 22:24] VITALS: BP 149/92; PULSE 66; RESP 18; TEMP 97.8; O2SAT 100
== END 2017-12-08 22:24 | disposition home or self-care (01) ==
LOC: C.ER 21:05
DX: N39.0 Urinary tract infection, site not specified (principal); G89.29 Other chronic pain; M54.5 Low back pain; E78.00 Pure hypercholesterolemia, unspecified
CPT/HCPCS: 81001; 84703; 87086; 96372; 99285; J1885

== ENCOUNTER 2018-01-27 12:05 | Emergency (ER) | payer MEDICAID ==
[2018-01-27 12:23] VITALS: RESP 18; O2SAT 99
[2018-01-27] MEDS ORDERED: Sodium Chloride 0.9% 1,000 ML IV STA (12:59)
[2018-01-27] MEDS ORDERED: Barium Sulfate Susp 2.1% w/v, 2.0% w/w 450 mL Bottle PO STA (13:06)
[2018-01-27] MEDS ORDERED: Morphine 4 MG/ML VIAL ONE (13:14)
[2018-01-27] MEDS ORDERED: Sodium Chloride 0.9% 1,000 ML ONE (13:14)
[2018-01-27 13:17] LABS: BASO # 0.1 K/uL (0.0-0.2); BASO % 1.4 % (0.0-2.0); EOS # 0.2 K/uL (0.0-0.7); EOS % 1.8 % (0.0-4.0); HEMOGLOBIN 12.9 g/dL (11.0-16.0); LYMPH # 2.7 K/uL (1.0-4.3); LYMPH % 31.3 % (20.0-40.0); MEAN CELL VOLUME 94.6 fL (81.0-99.0); MEAN CORPUSCULAR HEMOGLOBIN 32.4 pg (27.0-31.0); MEAN CORPUSCULAR HGB CONC 34.3 g/dL (33.0-37.0); MEAN PLATELET VOLUME 8.4 fL (7.2-11.7); MONO # 0.7 K/uL (0.0-0.8); MONO % 7.6 % (0.0-10.0); NEUT # 5.1 K/uL (1.8-7.0); NEUT % 57.9 % (50.0-75.0); RBC 3.98 Mil/uL (3.80-5.20); RED CELL DISTRIBUTION WIDTH 13.6 % (11.5-14.5); WHITE BLOOD COUNT 8.7 K/uL (4.8-10.8)
[2018-01-27] MEDS ORDERED: Barium Sulfate Susp 2.1% w/v, 2.0% w/w 450 mL Bottle PO ONE (13:35)
[2018-01-27 13:36] LABS: ALB/GLOB RATIO 1.5 (1.0-2.1); ALBUMIN 4.6 g/dL (3.5-5.0); ALT/SGPT 30 U/L (9-52); AST/SGOT 25 U/L (14-36); BLOOD UREA NITROGEN 9 mg/dL (7-17); CALCIUM 9.8 mg/dl (8.6-10.4); GFR AFRICAN-AMERICAN > 60; GFR NON-AFRICAN AMERICAN > 60; LIPASE 32 U/L (23-300)
[2018-01-27 13:53] LABS: HCG,QUALITATIVE URINE NEGATIVE (NEGATIVE)
[2018-01-27 13:57] LABS: URINE BILIRUBIN NEGATIVE (NEGATIVE); URINE BLOOD NEGATIVE (NEGATIVE); URINE CLARITY Clear (Clear); URINE COLOR Yellow (YELLOW); URINE GLUCOSE (UA) NORMAL (Normal); URINE LEUKOCYTE ESTERASE NEG Leu/uL (Negative); URINE PROTEIN NEGATIVE (NEGATIVE); URINE UROBILINOGEN NORMAL mg/dL (0.2-1.0)
--- NOTE | 2018-01-27 14:47 | C.PDOC ---
History Of Present Illness 47-year-old female, presents to the emergency department with complaints of severe generalized abdominal pain since yesterday, that is associated with nausea. Patient notes one episode of non-bloody/watery diarrhea, that has now resolved. Patient also notes a few episodes of bowel obstruction in the past ( last episode in 1998, which she had surgery for. Patient denies any fever or chills. No other complaints at this time. Time Seen by Provider: 01/27/18 12:35 Chief Complaint (Nursing): Abdominal Pain History Per: Patient History/Exam Limitations: no limitations Current Symptoms Are (Timing): Still Present Severity: Moderate Past Medical History Reviewed: Historical Data, Nursing Documentation, Vital Signs Vital Signs: Last Vital Signs Temp 99.0 F 01/27/18 16:36 Pulse 87 01/27/18 16:36 Resp 18 01/27/18 16:36 BP 151/77 H 01/27/18 16:36 Pulse Ox 99 01/27/18 17:37 - Medical History PMH: Asthma, Back Problems, Depression, Hypercholesterolemia, Obstructive Bowel (x4) Surgical History: Appendectomy Family History: States: No Known Family Hx - Social History Hx Alcohol Use: No Hx Substance Use: No - Immunization History Hx Tetanus Toxoid Vaccination: No Hx Influenza Vaccination: Yes Hx Pneumococcal Vaccination: No Review Of Systems Except As Marked, All Systems Reviewed And Found Negative. Constitutional: Negative for: Fever, Chills Cardiovascular: Negative for: Chest Pain Respiratory: Negative for: Shortness of Breath Gastrointestinal: Positive for: Abdominal Pain, Diarrhea Musculoskeletal: Negative for: Back Pain Physical Exam - Physical Exam Appears: Non-toxic, No Acute Distress, Other (uncomfortable, c/o pain) Skin: Normal Color, Warm, Dry, No Rash Head: Atraumatic, Normacephalic Eye(s): bilateral: Normal Inspection Nose: Normal Oral Mucosa: Moist Lips: Normal Appearing Neck: Normal ROM Chest: Symmetrical Cardiovascular: Rhythm Regular, No Murmur Respiratory: Normal Breath Sounds, No Accessory Muscle Use Gastrointestinal/Abdominal: Bowel Sounds (x4), Soft, Tenderness (diffuse), No Hernia, Other (midline post op scar) Extremity: Normal ROM, No Deformity, No Swelling Neurological/Psych: Oriented x3, Normal Speech ED Course And Treatment - Laboratory Results Result Diagrams: 01/27/18 13:11 01/27/18 13:11 O2 Sat by Pulse Oximetry: 99 Pulse Ox Interpretation: Normal (RA) - CT Scan/US CT Other Rad Studies (CT/US): Read By Radiologist, Radiology Report Reviewed CT/US Interpretation: Accession No. : [id number]. Patient Name / ID : REGINA Cornejo / [id number]. Exam Date : 01/27/2018 15:45:01 ( Approved ). Study Comment : Sex / Age : F / 47Y. Creator : Rimma Muro. Dictator : Percy Guzman MD. Press Cleaner : Locker Operator : Percy Guzman MD. Approver2 : Report Date : 01/27/2018 15:46:10. My Comment : . Date of service: 01/27/2018. PROCEDURE: CT Abdomen and Pelvis without intravenous contrast. HISTORY: abd pain. COMPARISON: 10/08/2017. TECHNIQUE: Without contrast.. Contrast dose: 0. Radiation dose: Total exam DLP = 394.09 mGy-cm. This CT exam was performed using one or more of the following dose reduction techniques: Automated exposure control, adjustment of the mA and/or kV according to patient size, and/or use of iterative reconstruction technique. FINDINGS: LOWER THORAX: Unremarkable. LIVER: Unremarkable. No gross lesion or ductal dilatation. GALLBLADDER AND BILE DUCTS: Unremarkable. PANCREAS: Unremarkable. No gross lesion or ductal dilatation. SPLEEN: Unremarkable. ADRENALS: Unremarkable. No mass. KIDNEYS AND URETERS: Unremarkable. No hydronephrosis. No solid mass. VASCULATURE: Unremarkable. No aortic aneurysm. BOWEL: Questionable mural thickening of the cecum. This may be artifact due to residual stool. However, the possibility of focal colitis or neoplasm must also be considered. Consider further evaluation with colonoscopy. No other abnormal bowel loops are appreciated. There is no evidence of bowel obstruction. APPENDIX: Not identified. PERITONEUM: Unremarkable. No free fluid. No free air. LYMPH NODES: Unremarkable. No enlarged lymph nodes. BLADDER: Poorly distended. REPRODUCTIVE: Status post hysterectomy. BONES: No acute fracture. OTHER FINDINGS: None. IMPRESSION: Mural thickening of the cecum which may be artifact. However, possibility of colitis or neoplasm must also be considered. Consider further evaluation with colonoscopy. No bowel obstruction. Otherwise unremarkable examination. Medical Decision Making Medical Decision Making: Plan: * CT Abd/Pel * Bloodwork * Morphine, Pepcid, Protonix, IVF, Zofran * Stool culture, c diff toxin, stool for occult blood - negative * On re-evaluation patient feels better, CT didn't show any acute finding. Patient is stable to be d/c home, she has an appointment with her GI tomorrow. * Copies of blood work and CT were given to patient * Disposition - Disposition Disposition: HOME/ ROUTINE Disposition Time: 16:35 Condition: IMPROVED Additional Instructions: Follow up with your Work Checker tomorrow as scheduled. Return to ED immediately if feel worse. Instructions: Acute Abdomen (Belly Pain) Forms: [employer] (Chinese) - Clinical Impression Clinical Impression: Abdominal pain - Scribe Statement The provider has reviewed the documentation as recorded by the Scribe (Cullen Mark) All medical record entries made by the Scribe were at my direction and personally dictated by me. I have reviewed the chart and agree that the record accurately reflects my personal performance of the history, physical exam, medical decision making, and the department course for this patient. I have also personally directed, reviewed, and agree with the discharge instructions and disposition.
[2018-01-27] MEDS ORDERED: Alum-Mag Hydrox-Simethicone Susp (30 mL) ONE (15:11)
--- NOTE | 2018-01-27 16:13 | CT ---
Date of service: 01/27/2018 PROCEDURE: CT Abdomen and Pelvis without intravenous contrast HISTORY: abd pain COMPARISON: 10/08/2017 TECHNIQUE: Without contrast.. Contrast dose: 0 Radiation dose: Total exam DLP = 394.09 mGy-cm. This CT exam was performed using one or more of the following dose reduction techniques: Automated exposure control, adjustment of the mA and/or kV according to patient size, and/or use of iterative reconstruction technique. FINDINGS: LOWER THORAX: Unremarkable. LIVER: Unremarkable. No gross lesion or ductal dilatation. GALLBLADDER AND BILE DUCTS: Unremarkable. PANCREAS: Unremarkable. No gross lesion or ductal dilatation. SPLEEN: Unremarkable. ADRENALS: Unremarkable. No mass. KIDNEYS AND URETERS: Unremarkable. No hydronephrosis. No solid mass. VASCULATURE: Unremarkable. No aortic aneurysm. BOWEL: Questionable mural thickening of the cecum. This may be artifact due to residual stool. However, the possibility of focal colitis or neoplasm must also be considered. Consider further evaluation with colonoscopy. No other abnormal bowel loops are appreciated. There is no evidence of bowel obstruction. APPENDIX: Not identified PERITONEUM: Unremarkable. No free fluid. No free air. LYMPH NODES: Unremarkable. No enlarged lymph nodes. BLADDER: Poorly distended REPRODUCTIVE: Status post hysterectomy BONES: No acute fracture. OTHER FINDINGS: None. IMPRESSION: Mural thickening of the cecum which may be artifact. However, possibility of colitis or neoplasm must also be considered. Consider further evaluation with colonoscopy. No bowel obstruction. Otherwise unremarkable examination.
[2018-01-27 16:37] VITALS: BP 151/77; PULSE 87; TEMP 99
== END 2018-01-27 17:01 | disposition home or self-care (01) ==
LOC: C.ER 12:05
DX: R10.84 Generalized abdominal pain (principal)
CPT/HCPCS: 74176; 80053; 81001; 83690; 84703; 85025; 87045; 87230; 96361; 96374; 96375; 96376; 99284; C9113; G0328; J2270; J2405; J7030

== ENCOUNTER 2018-02-17 12:20 | Emergency (ER) | payer MEDICAID ==
[2018-02-17 12:30] VITALS: RESP 18
--- NOTE | 2018-02-17 12:38 | C.PDOC ---
History Of Present Illness 47 yr old female w/ hx of diverticulitis, appendectomy, complete hysterectomy, intestinal obstruction p/w abdominal pain. Abdominal pain started yesterday, throbbing, right sided, similar to previous sbo. Pt notes that she has had 5 lose stools today, with one episode of bloody stool. Stool is otherwise non- dark. Pt also notes that she also had a colonoscopy 2 weeks prior, without any findings and finished her abx for diverticulitis one week ago. No nausea or vomiting. No headache. Non fever, chills or night sweats. No trauma or falls. No chest pain or sob. No recent travel abroad. No new diets. Time Seen by Provider: 02/17/18 12:37 Chief Complaint (Nursing): Abdominal Pain History Per: Patient Onset/Duration Of Symptoms: Days (1 day) Current Symptoms Are (Timing): Still Present Severity: Moderate Location Of Pain/Discomfort: Diffuse, Epigastric Abnormal Vaginal Bleeding: No Past Medical History Vital Signs: Last Vital Signs Temp 98 F 02/17/18 12:30 Pulse 74 02/17/18 12:30 Resp 18 02/17/18 12:30 BP 143/84 02/17/18 12:30 Pulse Ox 99 02/17/18 14:36 - Medical History PMH: Asthma, Back Problems, Depression, Hypercholesterolemia, Obstructive Bowel (x4) Surgical History: Appendectomy Family History: States: Unknown Family Hx - Social History Hx Alcohol Use: No Hx Substance Use: No - Immunization History Hx Tetanus Toxoid Vaccination: No Hx Influenza Vaccination: Yes Hx Pneumococcal Vaccination: No Review Of Systems Except As Marked, All Systems Reviewed And Found Negative. Gastrointestinal: Positive for: Abdominal Pain, Other (bloody stool) Physical Exam - Physical Exam Appears: Well Skin: Normal Color, Warm, Dry Eye(s): bilateral: Normal Inspection, PERRL, EOMI Nose: Normal Throat: Normal Neck: Normal Cardiovascular: Rhythm Regular Respiratory: Normal Breath Sounds Gastrointestinal/Abdominal: Tenderness (rlq, llq) Rectal: Normal Exam, Heme Negative Back: Normal Inspection Extremity: Normal ROM ED Course And Treatment - Laboratory Results Result Diagrams: 02/17/18 13:33 02/17/18 13:33 O2 Sat by Pulse Oximetry: 99 Medical Decision Making Medical Decision Makin yr old female p/w abominal pain, bloody stool. Given hx of diverticulitis, and SBO will seek out CT and labs. Likely component of IBD as pt had negative scope 1 week prior. No diarrhea per pt, just loose. Given recent abx 1 week prior c diff is possibility, however pt has been on probiotics and time course and severity of loose stool is likely non-indicative of any c diff. 1338 Guaic done, no hemorrhoids or active bleeding noted. 1402 labs unremarkable. pending urine. [address] guaic positive, H&H WNL 1524 CT unremarkable IMPRESSION: No acute abdominal pelvic pathology. informed pt as to hypodensities in kidney and to f/u w/ pmd. pt endorsed understanding. pain resolved, pt in nad with VSS, pt notes she has pepcid and percocet at home. Tolerating clears, no N/V reported. Clear for d/c home with follow up with GI and PMD. Disposition - Disposition Referrals: Charles Toledo MD [Staff Provider] - [facility] [Outside] Disposition: HOME/ ROUTINE Disposition Time: 15:26 Condition: GOOD Additional Instructions: RUT TAPIA, thank you for letting us take care of you today. Your provider was Ronnell Mendieta and you were treated for RT SIDE PAIN. The emergency medical care you received today was directed at your acute symptoms. If you were prescribed any medication, please fill it and take as directed. It may take several days for your symptoms to resolve. Return to the Emergency Department if your symptoms worsen, do not improve, or if you have any other problems. Please contact your doctor or call one of the physicians/clinics you have been referred to that are listed on the Patient Visit Information form that is included in your discharge packet. Bring any paperwork you were given at discharge with you along with any medications you are taking to your follow up visit. Our treatment cannot replace ongoing medical care by a primary care provider outside of the emergency department. Thank you for allowing the [facility] team to be part of your care today. If you had an X-Ray or CT scan: A Radiologist will review the ED reading if any change in treatment is needed we will contact you. If you had a blood, urine, or wound culture: It will take several days for the results, if any change in treatment is needed we will contact you. If you had an STI test: It will take 48 hours for the results. Please call after 1 week if you have not heard back. Instructions: Gastritis (DC), Acute Abdomen (Belly Pain), Adult (DC) Forms: [employer] (Faroese) - Clinical Impression Clinical Impression: Gastroenteritis, Abdominal wall pain, Abdominal pain
[2018-02-17] MEDS ORDERED: Sodium Chloride 0.9% 1,000 ML IV SCH (13:00)
[2018-02-17 13:43] LABS: BASO # 0.1 K/uL (0.0-0.2); BASO % 1.3 % (0.0-2.0); EOS # 0.1 K/uL (0.0-0.7); EOS % 0.6 % (0.0-4.0); HEMOGLOBIN 12.6 g/dL (11.0-16.0); LYMPH # 2.4 K/uL (1.0-4.3); LYMPH % 22.9 % (20.0-40.0); MEAN CELL VOLUME 93.9 fL (81.0-99.0); MEAN CORPUSCULAR HEMOGLOBIN 32.3 pg (27.0-31.0); MEAN CORPUSCULAR HGB CONC 34.4 g/dL (33.0-37.0); MONO # 0.6 K/uL (0.0-0.8); MONO % 6.1 % (0.0-10.0); NEUT # 7.2 K/uL (1.8-7.0); NEUT % 69.1 % (50.0-75.0); RBC 3.9 Mil/uL (3.80-5.20); RED CELL DISTRIBUTION WIDTH 13.5 % (11.5-14.5); WHITE BLOOD COUNT 10.4 K/uL (4.8-10.8)
[2018-02-17 13:49] LABS: VENOUS BLOOD GAS BASE EXCESS 3.2 mmol/L (0.0-2.0); VENOUS BLOOD GAS PCO2 45 mmHg (40-60); VENOUS BLOOD GAS PO2 47 mm/Hg (30-55); VENOUS BLOOD PH 7.41 (7.32-7.43)
[2018-02-17 13:56] LABS: ALB/GLOB RATIO 1.5 (1.0-2.1); ALBUMIN 4.7 g/dL (3.5-5.0); ALT/SGPT 25 U/L (9-52); AST/SGOT 33 U/L (14-36); BLOOD UREA NITROGEN 12 mg/dL (7-17); CALCIUM 9.5 mg/dl (8.6-10.4); GFR NON-AFRICAN AMERICAN > 60; LIPASE 35 U/L (23-300)
[2018-02-17] MEDS ORDERED: Morphine 4 MG/ML VIAL IV ONE (13:59)
[2018-02-17] MEDS ORDERED: Morphine 4 MG/ML VIAL ONE (14:03)
[2018-02-17 14:13] LABS: SQUAMOUS EPITHIAL 2 /hpf (0-5); URINE BILIRUBIN NEGATIVE (NEGATIVE); URINE BLOOD NEGATIVE (NEGATIVE); URINE CLARITY Hazy (Clear); URINE COLOR Yellow (YELLOW); URINE GLUCOSE (UA) NORMAL (Normal); URINE LEUKOCYTE ESTERASE NEG Leu/uL (Negative); URINE PROTEIN NEGATIVE (NEGATIVE); URINE UROBILINOGEN NORMAL mg/dL (0.2-1.0)
[2018-02-17] MEDS ORDERED: Iodixanol 320 MG/ML 100 ML BOTTLE IV ONE (14:37)
--- NOTE | 2018-02-17 15:22 | CT ---
Date of service: 02/17/2018 PROCEDURE: CT Abdomen and Pelvis with contrast HISTORY: abdominal pain, rlq COMPARISON: CT scan of the abdomen pelvis dated 01/27/2018. TECHNIQUE: Contrast dose: 100 mL Visipaque 320 Radiation dose: Total exam DLP = 375.2 mGy-cm. This CT exam was performed using one or more of the following dose reduction techniques: Automated exposure control, adjustment of the mA and/or kV according to patient size, and/or use of iterative reconstruction technique. FINDINGS: LOWER THORAX: Unremarkable. LIVER: Mild hepatic steatosis. No gross lesion or ductal dilatation. GALLBLADDER AND BILE DUCTS: Unremarkable. PANCREAS: Unremarkable. No gross lesion or ductal dilatation. SPLEEN: Unremarkable. ADRENALS: Unremarkable. No mass. KIDNEYS AND URETERS: Multiple too small to characterize right renal hypodensities. No hydronephrosis. No solid mass. VASCULATURE: Unremarkable. No aortic aneurysm. BOWEL: Unremarkable. No obstruction. No gross mural thickening. APPENDIX: No findings to suggest acute appendicitis. PERITONEUM: Unremarkable. No free fluid. No free air. LYMPH NODES: Unremarkable. No enlarged lymph nodes. BLADDER: Unremarkable. REPRODUCTIVE: Prior hysterectomy. BONES: No acute fracture. OTHER FINDINGS: Bilateral gluteal soft tissue calcifications. IMPRESSION: No acute abdominal pelvic pathology.
[2018-02-17 15:57] VITALS: BP 143/89; PULSE 92; TEMP 98.7; O2SAT 94
== END 2018-02-17 15:58 | disposition home or self-care (01) ==
LOC: C.ER 12:20
DX: K52.9 Noninfective gastroenteritis and colitis, unspecified (principal); R10.9 Unspecified abdominal pain
CPT/HCPCS: 74177; 80053; 81001; 82803; 83690; 85025; 96374; 96375; 99284; G0328; J2270; J7030; Q9967

== ENCOUNTER 2018-04-23 13:08 | Inpatient (IN) | payer MEDICAID ==
[2018-04-23 13:29] VITALS: BMI 24.7
[2018-04-23] MEDS ORDERED: Sodium Chloride 0.9% 1,000 ML IV ONE ×2 (13:38→17:15)
[2018-04-23 13:59] LABS: BASO # 0.1 K/uL (0.0-0.2); BASO % 1.3 % (0.0-2.0); EOS % 0.3 % (0.0-4.0); HEMOGLOBIN 13.7 g/dL (11.0-16.0); LYMPH # 2.4 K/uL (1.0-4.3); LYMPH % 25.2 % (20.0-40.0); MEAN CORPUSCULAR HEMOGLOBIN 32.2 pg (27.0-31.0); MEAN CORPUSCULAR HGB CONC 34.2 g/dL (33.0-37.0); MONO # 0.4 K/uL (0.0-0.8); MONO % 4.4 % (0.0-10.0); NEUT # 6.7 K/uL (1.8-7.0); NEUT % 68.8 % (50.0-75.0); RBC 4.26 Mil/uL (3.80-5.20); RED CELL DISTRIBUTION WIDTH 13.6 % (11.5-14.5); WHITE BLOOD COUNT 9.7 K/uL (4.8-10.8)
--- NOTE | 2018-04-23 14:03 | C.PDOC ---
History Of Present Illness 47 year old female with PMHx of anxiety and chronic back pain presents to ED following suicide attempt at 12:30pm by overdosing on her medication. States she is having family problems at home prompting her to take 10 of hydroxizine 50mg, 4 of gabapentin 800mg, and 6 of tizanidine 5mg. Afterward, she texted her who told her to think about her new granddaughter. Patient then called the 911 herself. She states that she believes she "did something stupid" and no longer wishes to . Patient only complains of feeling sleepy and lightheaded. Patient denies chest pain, palpitations, shortness of breath, nausea, vomiting, abdominal pain, diarrhea, constipation, dizziness, auditory or visual hallucinations. <Naya Salazar P - Last Filed: 04/23/18 19:53> <Naya Salazar P - Last Filed: 04/23/18 19:53> <Angela Ibrahim - Last Filed: 04/23/18 20:53> Time Seen by Provider: 04/23/18 13:22 Chief Complaint (Nursing): Psychiatric Evaluation Past Medical History Vital Signs: Last Vital Signs Temp 98.5 F 04/23/18 13:27 Pulse 72 04/23/18 13:27 Resp 20 04/23/18 13:27 BP Pulse Ox 97 04/23/18 13:27 - Medical History PMH: Anxiety, Asthma, Back Problems, Depression, Hypercholesterolemia, Obstructive Bowel (x4) Other PMH: R renal cyst Surgical History: Appendectomy Other Surgeries: hysterectomy Family History: States: Unknown Family Hx - Social History Hx Tobacco Use: Yes (6 cigarettes per day for 26 years) Hx Alcohol Use: No Hx Substance Use: No - Immunization History Hx Tetanus Toxoid Vaccination: No Hx Influenza Vaccination: Yes Hx Pneumococcal Vaccination: No <Naya Salazar P - Last Filed: 04/23/18 19:53> Vital Signs: Last Vital Signs Temp 98.1 F 04/23/18 16:06 Pulse 91 H 04/23/18 16:06 Resp 18 04/23/18 16:06 BP 96/57 L 04/23/18 16:06 Pulse Ox 98 04/23/18 16:06 <Angela Ibrahim - Last Filed: 04/23/18 20:53> Review Of Systems Constitutional: Negative for: Fever, Chills, Sweats Eyes: Negative for: Pain, Vision Change Cardiovascular: Negative for: Chest Pain, Palpitations Respiratory: Negative for: Cough, Shortness of Breath, Hemoptysis Gastrointestinal: Negative for: Nausea, Vomiting, Abdominal Pain, Diarrhea Genitourinary: Negative for: Dysuria, Frequency, Incontinence Neurological: Positive for: Other (lightheadedness and fatigue). Negative for: Weakness, Numbness, Change in Speech, Confusion, Seizures, Headache, Dizziness Psych: Positive for: Anxiety, Depression, Suicidal ideation <Naya Salazar P - Last Filed: 04/23/18 19:53> Physical Exam - Physical Exam Appears: Non-toxic, No Acute Distress Skin: Normal Color, Warm, Dry, No Diaphoretic Head: Atraumatic, Normacephalic Eye(s): bilateral: Normal Inspection, PERRL, EOMI Nose: Normal, No Flaring, No Discharge Oral Mucosa: Moist Throat: Normal, No Erythema Neck: Normal, Normal ROM Cardiovascular: Rhythm Regular, No Rhythm Irregular, No Edema, No Friction Rub, No Murmur, No JVD Respiratory: Normal Breath Sounds, No Decreased Breath Sounds, No Accessory Muscle Use, No Rales, No Rhonchi, No Wheezing Gastrointestinal/Abdominal: Bowel Sounds, Soft, Tenderness (mild R sided tenderness patient attributes to R renal cyst), No Distention, No Guarding, No Rebound Back: No CVA Tenderness Extremity: Normal ROM, No Tenderness, No Pedal Edema, No Calf Tenderness, Capillary Refill (normal) Pulses: Left Dorsalis Pedis: Normal, Right Dorsalis Pedis: Normal Neurological/Psych: Oriented x3, Normal Speech, Normal Cranial Nerves, No Cerebellar Signs, Normal Motor, Other (Patient noted to be tearful) <Naya Salazar P - Last Filed: 04/23/18 19:53> ED Course And Treatment - Laboratory Results Result Diagrams: 04/23/18 13:55 04/23/18 13:55 O2 Sat by Pulse Oximetry: 97 <Naya Salazar P - Last Filed: 04/23/18 19:53> - Laboratory Results Result Diagrams: 04/23/18 13:55 04/23/18 13:55 Lab Interpretation: No Acute Changes (UDS + cocaine) ECG: Interpreted By Me ECG Rhythm: Sinus Rhythm (with QT prolongation 519.) ECG Interpretation: No Acute Changes Pulse Ox Interpretation: Normal Progress Note: Patient seen and examined. Agree with documentation provided by resident. Repeat EKG continues to show QT prolonged 500. Reevaluation Time: 20:47 Reassessment Condition: Improved (Patient remains hemodynamically stable and is medically cleared for psychiatric admission.) <Angela Ibrahim - Last Filed: 04/23/18 20:53> Medical Decision Making Medical Decision Making: Plan: -CBC: Plt 428 -CMP: Alk Phos 180 -Salicylate level: <1 -Alcohol level: <10 -Acetaminophen level: 10 -UA: WNL -UDS: + cocaine -HCG: Negative -EKG: NSR at 86 bpm, possible LA enlargement, QTc prolonged at 519, MT 152, QRS 86 -poison control -IVF Case discussed with poison control. Will monitor patient for 6 hours. Repeat EKG showed prolonged QTc at 500, however improved from previous (519). Will continue with IVF and repeat EKG. <Naya Salazar P - Last Filed: 04/23/18 19:53> Disposition <Naya Salazar - Last Filed: 04/23/18 19:53> - Disposition Disposition Time: 20:48 - POA Present On Arrival: None <Angela Ibrahim - Last Filed: 04/23/18 20:53> - Disposition Disposition: HOSPITALIZED Condition: STABLE - Clinical Impression Clinical Impression: Suicide attempt, Moderate major depression, single episode
[2018-04-23 14:12] LABS: ALB/GLOB RATIO 1.4 (1.0-2.1); ALBUMIN 4.9 g/dL (3.5-5.0); ALT/SGPT 46 U/L (9-52); AST/SGOT 28 U/L (14-36); BLOOD UREA NITROGEN 9 mg/dL (7-17); CALCIUM 9.7 mg/dl (8.6-10.4); GFR NON-AFRICAN AMERICAN > 60
[2018-04-23 14:13] LABS: ACETAMINOPHEN < 10.0 ug/mL (10.0-30.0); SALICYLATE < 1.0 mg/dL 1
[2018-04-23 14:19] LABS: HCG,QUALITATIVE URINE NEGATIVE (NEGATIVE)
[2018-04-23 14:23] LABS: SQUAMOUS EPITHIAL < 1 /hpf (0-5); URINE BILIRUBIN NEGATIVE (NEGATIVE); URINE BLOOD NEGATIVE (NEGATIVE); URINE CLARITY Clear (Clear); URINE COLOR Straw (YELLOW); URINE GLUCOSE (UA) NORMAL (Normal); URINE LEUKOCYTE ESTERASE NEG Leu/uL (Negative); URINE PROTEIN NEGATIVE (NEGATIVE); URINE UROBILINOGEN NORMAL mg/dL (0.2-1.0)
[2018-04-23 14:36] LABS: BARBITURATES, UR NEGATIVE (NEGATIVE); BENZODIAZEPINES, UR NEGATIVE (NEGATIVE); OPIATES, UR NEGATIVE (NEGATIVE); PHENCYCLIDINE, UR NEGATIVE (NEGATIVE)
[2018-04-23] MEDS ORDERED: Sodium Chloride 0.9% 1,000 ML ONE (17:26)
[2018-04-23 22:41] VITALS: RESP 18
[2018-04-23] MEDS ORDERED: Albuterol HFA 90 mcg/actuation (8 g) INH PRN (22:57)
[2018-04-23] MEDS ORDERED: Naproxen 550 mg Tab PO PRN (22:59)
--- NOTE | 2018-04-23 23:02 | PCM.BM ---
<Ramona Orr - Last Filed: 04/23/18 23:01> Treatment Plan Problems - Problems identified on initial assessmt Depression Date Initiated: 04/23/18 Time Initiated: 21:50 Assessment reference: NA Status: Active Suicidal Ideation Date Initiated: 04/23/18 Time Initiated: 21:50 Assessment reference: NA Status: Monitor Treatment assets and liabiliti Patient Assests: negotiates basic needs Patient Liabilities: poor support system, relationship conflicts, substance abuse (Cocaine) - Milieu Protocol Maintain good personal hygiene: daily Encourage regular showers, daily Remind patient to perform daily oral care, every shift Assist patient to perform ADL's Conduct patient checks and document Observation sheet: Q15 minutes Maintain personal safety: every shift Educate patient to report safety concerns to staff, every shift Monitor environment for contraband/sharps Medication safety: Monitor for expected outcome, potential side effects: every shift, Assess barriers to learning: every shift, Assess readiness for medication education: every shift <Justyna Mercedes - Last Filed: 04/25/18 10:56> Family Contact Family involvement: Family/SO is involved Family contact: Family has been contacted by patient - Goals for Treatment Patient goals for treatment: "I want to go to an outpatient program in [place]." Discharge/Continuing Care - Education Needs Education Needs: Patient Medication, Patient Diagnosis/Disease Process, Patient Coping Skills, Patient Placement options, Patient Community resources - Discharge Discharge Criteria: Free of Suicidal thoughts, Normal sleep pattern, Ability to care for self, No longer exhibiting s/s of withdrawal, Reduction of target symptoms Discharge to:: Home, With Family - Treatment Team Participation Discussed with Family/SO: No Was Patient/Family/SO present at Treatment Team Meeting: Yes
[2018-04-24 06:51] VITALS: O2SAT 95
--- NOTE | 2018-04-24 10:31 | PCM.PSYCH ---
Initial Psychiatric Evaluation - Initial Psychiatric Evaluation Type of Admission: Voluntary Legal Status: Capacity Chief Complaint (in patient's own words): I was feeling depressed and suicidal.' History of Present Illness and Precipitating Events: Pt is a 47 yr old female with past medical history of anxiety, depression, chronic back pain, 4x SBO, asthma, scoliosis who presented to the ER for an attempted drug overdose after taking 10x 50mg hydroxizine, 4x gabapentin 800mg and 6x 5mg Tizanidine after ongoing conflict with her 2 adult children that live at the home with her. She states that this is her first suicide attempt and has never been admitted to a psychiatric hospital before. She was being treated previously for depression in [place] and seeing a therapist since she was 16. She reports distractibility, irritability, increases in psyhomotor agitation with decreased need for sleep. She admits anhedonia, trouble sleeping, feelings of guilt about her parenting, flight of ideas, feeling down, depressed, hopeless. She denies any auditory or visual hallucinations or any psychotic symptoms. Social hx: Lives with her 2 adult sons plus her and is not currently working. She denies drug use, however urine tox was positive for cocaine. She drinks 2-3 cups of coffee/day and smokes 1 pack of cigarettes every 3 days. Medical hx: 4 previous small bowel obstructions last in 1998, bulging lumbar discs, scoliosis, joint disease, asthma, panic disorder Allergies: Clindamycin, shellfish--> Laryngioedema and hives for both Surgery: Full hysterectomy Hospitalizations: Bowel obstructions Family Hx: Father of colon cancer Medications: Hydroxyzine 50mg, Zoloft 50 mg, Simvastatin 40mg, Tizanidine 2mg, gabapentin, omeprazole Current Medications: Active Medications Generic Name Dose Route Start Last Admin Trade Name Freq PRN Reason Stop Dose Admin Albuterol 1 puff 04/23/18 22:57 Ventolin Hfa 90 Mcg/Actuation (8 G) INH RQ6 PRN Shortness of Breath Hydroxyzine HCl 50 mg 04/23/18 22:24 04/24/18 04:13 Atarax PO 50 mg Q6H PRN Administration Anxiety Ibuprofen 600 mg 04/23/18 22:24 Motrin Tab PO Q6H PRN Pain, moderate (4-7) Influenza Virus Vaccine 60 mcg 04/26/18 10:00 Fluzone Quad [id number] IM 04/26/18 10:01 .ONCE ONE Naproxen 550 mg 04/23/18 22:59 04/24/18 04:10 Anaprox Ds PO 550 mg Q12H PRN Administration Pain, severe (8-10) Pneumococcal Polyvalent Vaccine 0.5 ml 04/26/18 10:00 Pneumovax 23 Vaccine IM 04/26/18 10:01 .ONCE ONE Sertraline HCl 50 mg 04/24/18 10:00 04/24/18 09:41 Zoloft PO 50 mg DAILY PORTIA Administration Trazodone HCl 100 mg 04/23/18 22:24 Desyrel PO HS PRN Insomnia Past Psychiatric History - Past Psychiatric History Previous Treatment History: None Pertinent Medical Hx (Current Medical&Sleep Prob, Allergies): Allergies Allergy/AdvReac Type Severity Reaction Status Date / Time cyclobenzaprine Allergy Intermediate Verified 02/17/18 12:32 [From Flexeril] clindamycin Allergy Verified 02/17/18 12:31 dicyclomine [From Bentyl] Allergy Verified 02/17/18 12:31 shellfish derived Allergy Verified 02/17/18 12:31 Gabapentin 600 mg PO DAILY 04/23/18 Sertraline HCl 50 mg PO DAILY 04/23/18 Tizanidine HCl 2 mg PO TID 04/23/18 hydrOXYzine HCl [Atarax] 50 mg PO HS 04/23/18 Review of Systems - Review of Systems All systems: reviewed and no additional remarkable complaints except - Psychiatric Psychiatric: Anxiety, Irritability, Mood Swings, Suicidal Ideation Mental Status Examination - Personal Presentation Personal Presentation: Looks stated age - Affect Affect: Constricted, Depressed - Motor Activity Motor Activity: Calm - Reliability in Providing Information Reliability in Providing Information: Good - Speech Speech: Organized - Mood Mood: Depressed, Anxious - Formal Thought Process Formal Thought Process: No Impairment - Obsessions/Compulsions Obsessions: No Compulsions: No - Cognitive Functions Orientation: Person, Place, Situation, Time Sensorium: Alert Attention/Concentration: Easily distracted Abstract Thinking: [place] Estimate of Intelligence: Below average Judgement: Imparied, as evidence by: Poor judgement, Imparied, as evidence by: Lack of insight into illness - Risk Risk: Suicidal, Diminished functioning - Strength & Assets Inventory Strength & Assets Inventory: Family support DSM 5 DX - DSM 5 DSM 5 Diagnosis: Bipolar disorder MRE Mixed moderate Opioid use disorder moderate Cocaine use disorder moderate - Recommended/Plan of Treatment Treatment Recommendations and Plan of Treatment: Bipolar disorder MRE Mixed moderate CBT Psychoeducation Supportive therapy, group therapy, individual therapy Trazodone 100 mg by mouth daily at bedtime Hydroxyzine 25 mg by mouth every 6 hours when necessary Gabapentin 300 mg po TID Sertraline 50 mg PO Daily Opioid use disorder moderate CBT Psychoeducation Supportive therapy, individual therapy Use ID for abstinence Cocaine use disorder moderate Monitor signs and symptoms Use ID for abstinence - Smoking Cessation Smoking Cessation Initiated: No
--- NOTE | 2018-04-24 12:12 | CARD ---
APPROVED REPORT Date of service: 04/23/2018 EKG Measurement Heart [id number] <Conclusion> Normal sinus rhythm Prolonged QT Abnormal ECG
--- NOTE | 2018-04-24 12:13 | CARD ---
APPROVED REPORT Date of service: 04/23/2018 EKG Measurement Heart [id number] <Conclusion> Normal sinus rhythm Possible Left atrial enlargement Prolonged QT Abnormal ECG
--- NOTE | 2018-04-24 12:13 | CARD ---
APPROVED REPORT Date of service: 04/23/2018 EKG Measurement Heart [id number] <Conclusion> Normal sinus rhythm Prolonged QT Abnormal ECG
[2018-04-25 07:02] VITALS: TEMP 97.6
[2018-04-25 10:12] VITALS: BP 112/68; PULSE 83
--- NOTE | 2018-04-25 10:31 | PCM.PYCHDC ---
Mental Status Examination - Mental Status Examination Orientation: Person, Place, Situation, Time Memory: Intact Mood: Neutral Affect: Constricted Speech: Soft Attention: WNL Concentration: WNL Association: WNL Fund of Knowledge: WNL Formal Thought Process: No Impairment Description of patient's judgement and insight: good, fair Psychotic Thoughts and Behaviors: denies any AVH Suicidal Ideation: No Current Homicidal Ideation?: No Discharge Summary - Discharge Note Reason for Hospitalization: Pt is a 47 yr old female with past medical history of anxiety, depression, chronic back pain, 4x SBO, asthma, scoliosis who presented to the ER for an attempted drug overdose after taking 10x 50mg hydroxizine, 4x gabapentin 800mg and 6x 5mg Tizanidine after ongoing conflict with her 2 adult children that live at the home with her. She states that this is her first suicide attempt and has never been admitted to a psychiatric hospital before. She was being treated previously for depression in [place] and seeing a therapist since she was 16. She reports distractibility, irritability, increases in psyhomotor agitatio n with decreased need for sleep. She admits anhedonia, trouble sleeping, feelings of guilt about her parenting, flight of ideas, feeling down, depressed, hopeless. She denies any auditory or visual hallucinations or any psychotic symptoms. Social hx: Lives with her 2 adult sons plus her and is not currently working. She denies drug use, however urine tox was positive for cocaine. She drinks 2-3 cups of coffee/day and smokes 1 pack of cigarettes every 3 days. Medical hx: 4 previous small bowel obstructions last in 1998, bulging lumbar discs, scoliosis, joint disease, asthma, panic disorder Allergies: Clindamycin, shellfish--> Laryngioedema and hives for both Surgery: Full hysterectomy Hospitalizations: Bowel obstructions Family Hx: Father of colon cancer Medications: Hydroxyzine 50mg, Zoloft 50 mg, Simvastatin 40mg, Tizanidine 2mg, gabapentin, omeprazole Consultations:: List each consultation separately and include: 1. Reason for request. 2. Findings. 3. Follow-up Summary of Hospital Course include:: 1. Description of specific treatment plan utilized for patients during their course of treatmen. 2. Summarize the time- course for resolution of acute symptoms and/or regressed behaviors. 3. Describe issues identified and worked on during hospitalization. 4. Describe medication utilized. 5. Describe medical problems identified and treated. 6. Reassessment of suicide risk Summary of Hospital Course: Patient (pt) started progressively improving and no longer remained irritable, depressed, and suicidal. Her mood and anxiety were improved and she started attending groups and meetings and started socializing. Patient denied any feelings of hopelessness, helplessness, and worthlessness, denied any problem with the sleep or appetite, denied suicidal ideation or homicidal ideation. Pt denied any auditory or visual hallucinations. She denied any withdrawal symptoms. Pt was treated with medications along with supportive therapy, milieu therapy and group therapy. Some changes were made in her current medications and patient was discharged on following medications. She tolerated these medications very well and denied any side effects. - Final Diagnosis (DSM 5) Condition upon Discharge: STABLE DSM 5: Bipolar disorder MRE Mixed moderate Opioid use disorder moderate Cocaine use disorder moderate Disposition: HOME/ ROUTINE Follow-up Treatment Plan: Followup: She was discharged to the [facility] outpatient program, [place], [place] Education: Pt was educated and counseled about the risks and benefits of taking and not taking medications. Pt was educated and counseled about the risks of drinking and abusing drugs. Pt was educated and counseled to go to the ER or call 911 if pt develop suicidal ideation or homicidal ideation, worsening of symptoms or severe side effects of the meds. Prescriptions/Medication Reconciliation: Gabapentin [Neurontin] 300 mg PO TID 14 Days cap Sertraline [Zoloft] 100 mg PO DAILY 14 Days tab traZODone [Desyrel] 100 mg PO HS PRN 14 Days tab PRN Reason: Insomnia - Smoking Cessation Smoking Cessation Medication prescribed: No - Antipsychotic Medications Pt discharged on 2 or more routine antipsychotic medications: No
[2018-04-26] MEDS ORDERED: Influenza Vaccine 60 MCG/0.5 ML SYR (3 yr & up) IM ONE (10:00)
[2018-04-26] MEDS ORDERED: Pneumococcal 23-Valent Vaccine IM ONE (10:00)
== END 2018-04-25 12:21 | disposition home or self-care (01) | DRG 753 ==
LOC: C.ER 13:08 → C.5E 20:53
PROVIDERS: ADMIT Psychiatry & Neurology Psychiatry; ATTEND Psychiatry & Neurology Psychiatry
PROC: GZ3ZZZZ Medication Management (ICD-10-PCS; principal; 2018-04-23)
PROC: HZ99ZZZ Pharmacotherapy for Substance Abuse Treatment, Other Replacement Medication (ICD-10-PCS; 2018-04-23)
PROC: GZHZZZZ Group Psychotherapy (ICD-10-PCS; 2018-04-23)
PROC: HZ46ZZZ Group Counseling for Substance Abuse Treatment, Psychoeducation (ICD-10-PCS; 2018-04-23)
PROC: GZ56ZZZ Individual Psychotherapy, Supportive (ICD-10-PCS; 2018-04-23)
PROC: HZ59ZZZ Individual Psychotherapy for Substance Abuse Treatment, Supportive (ICD-10-PCS; 2018-04-23)
DX: F31.62 Bipolar disorder, current episode mixed, moderate (principal); F11.20 Opioid dependence, uncomplicated; F14.10 Cocaine abuse, uncomplicated; T43.592A Poisoning by other antipsychotics and neuroleptics, intentional self-harm, initial encounter; T42.6X2A Poisoning by other antiepileptic and sedative-hypnotic drugs, intentional self-harm, initial encounter; T42.8X2A Poisoning by antiparkinsonism drugs and other central muscle-tone depressants, intentional self-harm, initial encounter; F41.0 Panic disorder [episodic paroxysmal anxiety]; J45.909 Unspecified asthma, uncomplicated; M41.9 Scoliosis, unspecified; E78.00 Pure hypercholesterolemia, unspecified; F17.210 Nicotine dependence, cigarettes, uncomplicated; Y92.009 Unspecified place in unspecified non-institutional (private) residence as the place of occurrence of the external cause; Z63.9 Problem related to primary support group, unspecified; Z90.710 Acquired absence of both cervix and uterus; Z80.0 Family history of malignant neoplasm of digestive organs

== ENCOUNTER 2018-07-11 15:20 | Emergency (ER) | payer MEDICAID ==
[2018-07-11 15:27] VITALS: BMI 26.5
[2018-07-11 15:30] VITALS: BP 126/87; PULSE 98; RESP 18; TEMP 98.2; O2SAT 99
[2018-07-11] MEDS ORDERED: Lidocaine 5% Patch TD STA (15:44)
[2018-07-11] MEDS ORDERED: Lidocaine 5% Patch TD ONE (15:50)
--- NOTE | 2018-07-11 15:55 | C.PDOC ---
History Of Present Illness 47 y/o female with a PMHx of anxiety and disc injury many years ago, presents with bilateral lower back pain. Patient states she was recently visiting [place], has not seen her doctor and has not had her percocet for 1 month. She usually has pain to the right lower back, now pain is bilateral. Also noticed a small lump under the skin, prompting concern. Patient denies any headache, n/v, fevers, or chills. Reports she has had night sweats and feeling tremulous, which is chronic. Time Seen by Provider: 07/11/18 15:37 Chief Complaint (Nursing): Back Pain History Per: Patient History/Exam Limitations: no limitations Onset/Duration Of Symptoms: Days Current Symptoms Are (Timing): Worse Previous Symptoms: Back Pain Associated Symptoms: None Past Medical History Reviewed: Historical Data, Nursing Documentation, Vital Signs Vital Signs: Last Vital Signs Temp 98.2 F 07/11/18 15:27 Pulse 98 H 07/11/18 15:27 Resp 18 07/11/18 15:27 BP 126/87 07/11/18 15:27 Pulse Ox 99 07/11/18 15:27 - Medical History PMH: Anxiety, Asthma, Back Problems, Depression, Hypercholesterolemia, Obstructive Bowel (x4) Surgical History: Appendectomy - [facility] 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, PSYCHOEDUCATION (04/23/18) GROUP PSYCHOTHERAPY (04/23/18) INDIV PSYCHOTHERAPY FOR SUBSTANCE ABUSE TREATMENT, SUPPORT (04/23/18) INDIVIDUAL PSYCHOTHERAPY, SUPPORTIVE (04/23/18) MEDICATION MANAGEMENT (04/23/18) PHARMACOTHERAPY FOR SUBSTANCE ABUSE, OTH REPLACE MED (04/23/18) Family History: States: Unknown Family Hx - Social History Hx Tobacco Use: Yes (6 cigarettes per day for 26 years) Hx Alcohol Use: No Hx Substance Use: No - Immunization History Hx Tetanus Toxoid Vaccination: No Hx Influenza Vaccination: Yes Hx Pneumococcal Vaccination: No Review Of Systems Except As Marked, All Systems Reviewed And Found Negative. Constitutional: Negative for: Fever, Chills Respiratory: Negative for: Shortness of Breath Gastrointestinal: Negative for: Abdominal Pain Genitourinary: Negative for: Dysuria, Frequency, Incontinence, Hematuria Musculoskeletal: Positive for: Back Pain Neurological: Negative for: Weakness, Numbness, Incoordination Physical Exam - Physical Exam Appears: Non-toxic, Other (Tearful, appears anxious) Skin: Warm, Dry Head: Atraumatic, Normacephalic Eye(s): bilateral: Normal Inspection, PERRL, EOMI Oral Mucosa: Moist Neck: Normal ROM Chest: Symmetrical Cardiovascular: Rhythm Regular, No Murmur Respiratory: Normal Breath Sounds, No Accessory Muscle Use, No Rhonchi, No Wheezing Gastrointestinal/Abdominal: Soft, No Tenderness, No Distention Back: No Vertebral Tenderness, No Paraspinal Tenderness Extremity: Bilateral: Atraumatic, Normal Color And Temperature, Other (very tremulous) Pulses: Left Dorsalis Pedis: Normal, Right Dorsalis Pedis: Normal Neurological/Psych: Oriented x3 ED Course And Treatment O2 Sat by Pulse Oximetry: 99 (RA) Pulse Ox Interpretation: Normal Medical Decision Making Medical Decision Making: Patient medicated with 60mg IM Toradol, 975mg PO Tylenol, and topical lido patch. Patient continues to complain of pain. Given Valium PO. Advised that patient needs to follow up with pain management for further evaluation. Disposition Counseled Patient/Family Regarding: Diagnosis, Need For Followup, Rx Given - Disposition Referrals: [facility] [Outside] Damir Ann MD [Staff Provider] - Disposition: HOME/ ROUTINE Disposition Time: 17:14 Condition: STABLE Prescriptions: Ibuprofen [Motrin] 600 mg PO TID #15 tab Instructions: Chronic Pain Forms: [facility] ([place]), General Discharge Instructions - POA Present On Arrival: None - Clinical Impression Clinical Impression: Chronic low back pain - Scribe Statement The provider has reviewed the documentation as recorded by the Washington Seymour Provider Attestation: All medical record entries made by the Washington were at my direction and p ersonally dictated by me. I have reviewed the chart and agree that the record accurately reflects my personal performance of the history, physical exam, medical decision making, and the department course for this patient. I have also personally directed, reviewed, and agree with the discharge instructions and disposition.
== END 2018-07-11 17:19 | disposition home or self-care (01) ==
LOC: C.ER 15:20
DX: G89.29 Other chronic pain (principal); M54.5 Low back pain; E78.00 Pure hypercholesterolemia, unspecified; F17.210 Nicotine dependence, cigarettes, uncomplicated
CPT/HCPCS: 96372; 99284; J1885